=== PATIENT | female | born 1990 | race Caucasian/White ===

== ENCOUNTER → 2022-06-04 | Outpatient (CLI) | payer OTHER | LOC: M RAD 09:05 | PROVIDERS: ATTEND Obstetrics & Gynecology | DX: Z34.80 Encounter for supervision of other normal pregnancy, unspecified trimester (principal) ==

== ENCOUNTER 2022-06-13 21:08 | Inpatient (IN) | payer OTHER ==
[~2022-06-13] VITALS: Ht 160 cm; Wt 93.0 kg
[2022-06-13] MEDS ORDERED: PRENTAB9 PO (21:21)
[2022-06-13] MEDS ORDERED: WELLTAB40 PO (21:21)
[2022-06-13] MEDS ORDERED: CYCLOBENZAPRINE 10MG TABLET PO ONE (21:45)
[2022-06-13] MEDS ORDERED: ONDANSETRON 4MG ORAL DISINTEGRATING TAB PO PRN (22:20)
[2022-06-13] MEDS ORDERED: oxyCODONE 5MG TAB PO ONE (22:25)
[2022-06-13] MEDS ORDERED: oxyCODONE 5MG TAB As Ordered ONE (22:29)
[2022-06-13 22:32] VITALS: BP 131/82
[2022-06-13] MEDS ORDERED: MORPHINE 10 MG/ML 1ML VIAL IM ONE (23:00)
[2022-06-13 23:02] VITALS: BP 127/81
[2022-06-13 23:04] LABS: HEMATOCRIT 34.8 % (36.0-47.0); HEMOGLOBIN 11.4 g/dl (12.0-15.5); MEAN CORPUSCULAR HEMOGLOBIN 28.7 pg (27.0-33.0); MEAN CORPUSCULAR HGB CONC 32.8 g/dl (32.0-36.5); MEAN CORPUSCULAR VOLUME 87.7 fl (80.0-96.0); PLATELET COUNT, AUTOMATED 237 10^3/uL (150-450); RED BLOOD COUNT 3.97 10^6/uL (4.00-5.40); WHITE BLOOD COUNT 22.1 10^3/uL (4.0-10.0)
[2022-06-13] MEDS ORDERED: LACTATED RINGER'S 1000 ML IV STA (23:23)
[2022-06-13 23:26] LABS: LIPASE 30 U/L (12-53)
[2022-06-13 23:32] LABS: ALBUMIN 3.5 G/DL (3.2-5.2); ALKALINE PHOSPHATASE 56 U/L (46-116); ALT/SGPT 23 U/L (7.0-40); AST/SGOT 18 U/L (<34); BILIRUBIN,TOTAL 0.3 MG/DL (0.3-1.2); BLOOD UREA NITROGEN 14 MG/DL (9-23); CALCIUM LEVEL 9.7 MG/DL (8.5-10.1); CARBON DIOXIDE LEVEL 23 MMOL/L (20-31); CHLORIDE LEVEL 101 MMOL/L (98-107); CREATININE FOR GFR 0.67 MG/DL (0.55-1.30); GLOMERULAR FILTRATION RATE > 60.0 (>60); GLUCOSE, FASTING 92 MG/DL (60-100); POTASSIUM SERUM 3.7 MMOL/L (3.5-5.1); SODIUM LEVEL 134 MMOL/L (136-145); TOTAL PROTEIN 6.8 G/DL (5.7-8.2)
[2022-06-13 23:33] VITALS: BP 121/61
[2022-06-13] MEDS ORDERED: ONDANSETRON 4MG 2ML VIAL IV PRN (23:40)
[2022-06-13] MEDS: ceFAZolin SOD 1 GM in D5W MINI-BAG PLUS 50 ML IV SCH (23:41)
[2022-06-13] MEDS ORDERED: ONDANSETRON 4MG TAB PO PRN (23:50)
[2022-06-14] VITALS (19 sets, daily range): BP systolic 109–149; BP diastolic 54–88
[2022-06-14] MEDS: LR 1,000 ML IV SCH ×3 (00:34→18:02)
[2022-06-14] MEDS: ACETAMINOPHEN 1000MG 100ML IV BAG IV SCH ×3 (01:03→15:29)
[2022-06-14] MEDS: KETOROLAC 30 MG/ML 1ML VIAL IV SCH ×4 (02:31→20:25)
[2022-06-14 06:13] LABS: BASO % 0.2 % (0.0-1.0); EOS # 0.1 10^3/uL (0.0-0.5); EOS % 0.3 % (0.0-3.0); HEMATOCRIT 30.5 % (36.0-47.0); HEMOGLOBIN 10.1 g/dl (12.0-15.5); LYMPH # 1.7 10^3/uL (1.5-5.0); MEAN CORPUSCULAR HEMOGLOBIN 28.9 pg (27.0-33.0); MEAN CORPUSCULAR HGB CONC 33.1 g/dl (32.0-36.5); MEAN CORPUSCULAR VOLUME 87.4 fl (80.0-96.0); MONO # 0.8 10^3/uL (0.0-0.8); NEUTROPHILS # 14.1 10^3/uL (1.5-8.5); NEUTROPHILS % 83.1 % (36.0-66.0); PLATELET COUNT, AUTOMATED 194 10^3/uL (150-450); RED BLOOD COUNT 3.49 10^6/uL (4.00-5.40)
[2022-06-14] MEDS: ceFAZolin SOD 1 GM in D5W MINI-BAG PLUS 50 ML IV SCH (07:43)
[2022-06-14] MEDS ORDERED: buPROPion **XL** TABLET 150MG (WELLBUTRIN XL) PO SCH (09:00)
[2022-06-14] MEDS ORDERED: cefTRIAXone SOD 1 GM in D5W MINI-BAG PLUS 50 ML IV ONE (12:00)
[2022-06-14 16:07] LABS: HEMOGLOBIN 9.5 g/dl (12.0-15.5); MEAN CORPUSCULAR HGB CONC 31.7 g/dl (32.0-36.5); MEAN CORPUSCULAR VOLUME 88.5 fl (80.0-96.0); PLATELET COUNT, AUTOMATED 186 10^3/uL (150-450); RED BLOOD COUNT 3.39 10^6/uL (4.00-5.40); WHITE BLOOD COUNT 12.5 10^3/uL (4.0-10.0)
[2022-06-14] MEDS ORDERED: diphenhydrAMINE 50MG CAP PO PRN (18:10)
[2022-06-15] MEDS: LR 1,000 ML IV SCH (01:01)
[2022-06-15 02:02] VITALS: BP 110/57
[2022-06-15 06:05] VITALS: BP 110/58
[2022-06-15 09:11] VITALS: BP 127/70
== END 2022-06-15 11:08 | disposition home or self-care (01) | DRG 832 ==
LOC: M LDO 21:08 → INTOOBSV 23:23 → M LDI 23:23 → OBSVTOIN 06-14 18:25 → M LDI 06-15 10:58
PROVIDERS: ADMIT Obstetrics & Gynecology; ATTEND Obstetrics & Gynecology
DX: O23.02 Infections of kidney in pregnancy, second trimester (principal); N10 Acute pyelonephritis; Z3A.23 23 weeks gestation of pregnancy